=== PATIENT | female | born 1960 | race Caucasian/White ===

== ENCOUNTER 2024-09-30 05:30 | Day surgery (SDC) | payer OTHER ==
--- NOTE | 2024-09-21 10:48 | NUR ---
PHONE CALL TO PT NO ANSWER LEFT MESSAGE.
[~2024-09-30] VITALS: Ht 160 cm; Wt 95.9 kg
[~2024-09-30 05:30] MED LIST: CO Q-1010 MG PO; DEPAKOTE500 MG PO; LACTATED RINGER'S 1,000 ML IV SCH; LISINOPRIL-HCT1 EAC2 PO; NAPROXEN250 MG PO; TEGRETOL200 MG PO
[2024-09-30 05:58] VITALS: BP 165/77
[2024-09-30] MEDS ORDERED: VITAMIN D350 MCG PO (06:02)
[2024-09-30] MEDS ORDERED: TYLENOL EXTRA500 MG PO (06:03)
[2024-09-30] MEDS ORDERED: KETOROLAC TROMETHAMINE 30 MG/ML VIAL ONE ×2 (06:16→06:34)
[2024-09-30] MEDS ORDERED: propofoL 200 MG/20 ML VIAL ONE (06:34)
[2024-09-30] MEDS ORDERED: MIDAZOLAM HCL 2 MG/2 ML VIAL ONE (06:34)
[2024-09-30] MEDS ORDERED: DEXAMETHASONE SOD PHOS 4 MG/ML VIAL ONE (06:34)
[2024-09-30] MEDS ORDERED: LIDOCAINE HCL 2% 5 ML SDV ONE (06:34)
[2024-09-30] MEDS ORDERED: fentaNYL citrate 100 MCG/2 ML VIAL ONE (06:34)
[2024-09-30] MEDS ORDERED: ACETAMINOPHEN 1,000 MG/100 ML VIAL ONE (06:34)
[2024-09-30] MEDS ORDERED: ondansetron HCL 4 MG/2 ML VIAL ONE (06:34)
[2024-09-30] MEDS ORDERED: LIDOCAINE HCL 1% 5 ML SDV INJ ONE (07:00)
[2024-09-30] MEDS ORDERED: TRANEXAMIC ACID IN NACL,ISO-OS 1,000 MG/100 ML PIGGYBACK IV SCH (07:00)
[2024-09-30] MEDS ORDERED: HYDROCODONE/ACETA 5/325 TAB PO PRN (07:00)
[2024-09-30] MEDS ORDERED: CEFAZOLIN SODIUM 2 GM/20 ML SYR IV SCH (07:00)
[2024-09-30] MEDS ORDERED: IBLOOD GLUCOSE TEST STRIP 1 EA TEST VI PRN ×2 (07:00→07:30)
[2024-09-30] MEDS ORDERED: NALOXONE HCL 0.4 MG SYR IV PRN (07:30)
[2024-09-30] MEDS ORDERED: ondansetron HCL 4 MG/2 ML VIAL IV PRN (07:30)
[2024-09-30] MEDS ORDERED: droPERidol 5 MG/2 ML VIAL IV PRN (07:30)
[2024-09-30] MEDS ORDERED: PROCHLORPERAZINE EDISYLATE 10 MG/2 ML VIAL IV PRN (07:30)
[2024-09-30] MEDS ORDERED: fentaNYL citrate 50 MCG/ML SDV IV PRN (07:30)
[2024-09-30] MEDS ORDERED: HYDROmorphone HCL 1 MG/ML SYR IV PRN (07:30)
[2024-09-30] MEDS ORDERED: DICLOFENAC SODI75 MG PO (07:40)
--- NOTE | 2024-09-30 07:40 | NUR ---
PT NOT AVAILABLE FOR VISIT. PROVIDED PRAYER.
[2024-09-30] MEDS ORDERED: HYDROCODON-ACE1 EA10 PO (07:41)
[2024-09-30 08:09] VITALS: BP 136/57
--- NOTE | 2024-09-30 08:10 | NUR ---
Patient returns from PACU to room 7. She is awake and talking. Report taken from AMY Powell. Patient denies any pain or nausea. Vital signs obtained and wdl. Pedal pulse to left foot strong. Water and apple sauce provided to patient. I explained the expecations for the next hour and she expressed understanding. When patient positioned more upright in bed, patient reports some dizziness. She denies any other needs at this time. Call light within reach, bed in lowest position. Patient's friend Pablo at bedside.
--- NOTE | 2024-09-30 08:24 | NUR ---
09/30/24 0824 Sherry Felton 0740- PT ARRIVES TO THE PACU WITH A NATURAL AIRWAY ON 6L OF O2 VIA MASK. PT IS COUGHING. SEROLOGY TECHNICIAN AT BEDSIDE AND DOES A JAW THRUST AND DEEP SUCTION. BREATHING IS EVEN AND UNLABORED AFTER BEING ADJUSTED. ALL MONITORS PUT IN PLACE. VSS. LR INFUSING IN R AC. SURGICAL DRESSING IS CDI. CMS WNL OF L FOOT. ABDOMEN IS SOFT AND NON DISTENDED. PT IS REACTIVE TO TACTILE STIMULI WITH SOME FACIAL GRIMACING THAT LESSENS SHE FELL BACK TO SLEEP. SEROLOGY TECHNICIAN, REPORTS LIP TRAUMA THAT HAPPEN IN THE OR ON THE LEFT OF MIDLINE UPPER LIP. 0745- PT LIFTS HEAD OFF OF PILLOW AND LOOKING AROUND PACU. PT IS ORIENTED TO PACU. PT DENIES PAIN AND NAUSEA. O2 TURNED OFF AND REMOVED. PT IS ABLE TO MAINTAIN SAYS ABOVE 90%. PT FALLS BACK TO SLEEP EASILY BUT IS REACTIVE TO VERBAL STIMULI. 0755- PT WAKES EASILY AND IS TALKING WITH RN. PT IS TOLD ABOUT LIP TRAUMA AT THIS TIME. PT REPORTS NO PAIN OR NAUSEA. 0805- PT TRANSFERED TO DAY SURGERY. BEDISDE REPORT GIVEN TO ALONA REYES. SURGICAL SITE ASSESSED TOGETHER THAT SHOWS NO NEW SHADOWING. NO QUESTIONS OR CONCERNS. BED IN THE LOCKED POSITION. PT REPORTS NO PAIN OR NAUSEA AND REPORTS "FEELING PRETTY GOOD". [facility] WNL. CARE TURNED OVER AT THIS TIME.
[2024-09-30] MEDS ORDERED: DICLOFENAC SOD 75 MG TABEC PO SCH (09:00)
--- NOTE | 2024-09-30 09:00 | NUR ---
Rounding on patient. She would like to get up and attempt to use the restroom. She states that she feels well. No dizziness and no significant pain in her knee. Patient ambulates to the restroom without difficulty. She voids 125mL. Patient ambulates back to room 7 without difficulty and she is allowed to get dressed.
[2024-09-30 09:08] VITALS: BP 200/74
--- NOTE | 2024-09-30 09:15 | NUR ---
Patient is dressed. IV removed from right arm. Patient requests diclofenac before she is discharged as she won't be able to obtain her medications immediately. She was medicated with one dose of Diclofenac. Vital signs obtained. Blood pressure is high. Discharge instructions reviewed with patient in detail and she expresses understanding.
--- NOTE | 2024-09-30 09:19 | NUR ---
Blood pressure rechecked. Blood pressure is still high but has come down from initial check. Patient has not taken her blood pressure medication today, so she will take it when she gets home. Patient is discharged from unit via wheelchair where her friend Pablo is to take her home.
[2024-09-30 09:26] VITALS: BP 183/99
--- NOTE | 2024-09-30 11:17 | OR ---
[facility] [address], [place] [address] Signed DATE OF OPERATION: 09/30/2024 SURGEON: Suzan West MD PREOPERATIVE DIAGNOSIS: Medial meniscus tear, left knee. POSTOPERATIVE DIAGNOSES: 1. Medial meniscus tear, left knee. 2. Chondrocalcinosis. PROCEDURE PERFORMED: Left knee arthroscopy, partial medial meniscectomy. NAIL MAKER: None. ANESTHESIA: General. BLOOD LOSS: Minimal. BRIEF HISTORY: Peggy is a 64-year-old female with pain and catching in her knee. It felt unstable when she walked on it. Risks and benefits of operative treatment were discussed with her and she elected to proceed. Once consent was obtained she was taken to the operating room. After adequate anesthesia, she was placed on the operating room table. The right leg was flexed, abducted and externally rotated on a well-padded leg byrne. The left was placed in a well-padded leg byrne and prepped and draped in a standard sterile fashion. Standard inferolateral and superolateral portals were established after injecting 0.25% Marcaine with epinephrine. The scope was introduced in the knee. ARTHROSCOPIC FINDINGS: The patella showed grade 2 to grade 3 chondromalacia, primary the superior pole. The trochlea showed grade 2 to grade 3 chondromalacia. Medial and lateral gutters were clear with large osteophytes laterally. The ACL and PCL were intact. Lateral compartment showed some minor fraying of the meniscus with grade 2 chondral softening. Medial compartment showed diffuse grade 3 chondromalacia to the femur, grade 2 to the tibial side. There was a large meniscus tear from the posteromedial corner extending Electronically Signed By: SUZAN WEST MD 09/30/24 1117 PATIENT NAME: PEGGY LOPEZ OPERATIVE REPORT DATE OF : 60 REPORT #: [id number] PHYSICIAN: SUZAN WEST MD PCP: SANJANA SAINI PA-C REPORT IS CONFIDENTIAL AND NOT TO BE RELEASED WITHOUT AUTHORIZATION [facility] [address] [place] [id number] Signed posteriorly. This was infiltrated with significant amount of chondrocalcinosis. DESCRIPTION OF OPERATION: Diagnostic arthroscopy was undertaken as noted above. A standard inferomedial portal was made after localization using a spinal needle. Straight and curved biters were used to trim the meniscus tear back to a stable rim anteriorly and posteriorly. This was then feathered and smoothed using the shaver. The chondral flaps on the femur were also smoothed with a shaver. All debris was evacuated and the scope was withdrawn. Portals were closed with 3-0 nylon. The knee was injected with 60 mg of Toradol at the end of the case. The wounds were dressed with Adaptic, ABD, and Ramos wrap. She tolerated the procedure well. All sponge, needle, and instrument counts were correct. Suzan West MD BA/FRANCINE /[id number] Copies: ~ Electronically Signed By: SUZAN WEST MD 09/30/24 1117 PATIENT NAME: JOHNPEGGY OPERATIVE REPORT DATE OF : 60 REPORT #: [id number] PHYSICIAN: SUZAN WEST MD PCP: SANJANA SAINI PA-C REPORT IS CONFIDENTIAL AND NOT TO BE RELEASED WITHOUT AUTHORIZATION
[2024-09-30] MEDS ORDERED: SEVOFLURANE 250 ML BTL INH ONE (13:35)
== END 2024-09-30 09:20 | disposition home or self-care (01) ==
LOC: DS 05:30
PROVIDERS: ATTEND Specialist
PROC: 0SBD4ZZ Excision of Left Knee Joint, Percutaneous Endoscopic Approach (ICD-10-PCS; principal; 2024-09-30 07:00)
DX: S83.242A Other tear of medial meniscus, current injury, left knee, initial encounter (principal); M11.262 Other chondrocalcinosis, left knee; M94.262 Chondromalacia, left knee; I10 Essential (primary) hypertension; G40.909 Epilepsy, unspecified, not intractable, without status epilepticus; Z87.891 Personal history of nicotine dependence; Z79.899 Other long term (current) drug therapy; Z88.5 Allergy status to narcotic agent
CPT/HCPCS: 01400; J0131; J0690; J1100; J1885; J2003; J2250; J2405; J2704; J3010; J7121

== ENCOUNTER 2025-07-17 06:40 | Day surgery (SDC) | payer MEDICARE, OTHER ==
[2025-07-17] VITALS (9 sets, daily range): BP systolic 117–146; BP diastolic 57–80
[~2025-07-17] VITALS: Ht 160 cm; Wt 80.0 kg
[~2025-07-17 06:40] MED LIST changes: +DICLOFENAC SODI75 MG PO; +HYDROCODON-ACE1 EA10 PO; +TYLENOL EXTRA500 MG PO; +VITAMIN D350 MCG PO
[2025-07-17] MEDS ORDERED: GABAPENTIN 600 MG TAB PO SCH (07:00)
[2025-07-17] MEDS ORDERED: PANTOPRAZOLE SODIUM 40 MG TABEC PO SCH (07:00)
[2025-07-17] MEDS ORDERED: INTRA-ARTICULAR ANALGESIC INJECTION XX SCH (07:00)
[2025-07-17] MEDS ORDERED: OXYCODONE HCL 5 MG TAB PO SCH (07:00)
[2025-07-17] MEDS ORDERED: IBLOOD GLUCOSE TEST STRIP 1 EA TEST VI PRN ×2 (07:00→10:45)
[2025-07-17] MEDS ORDERED: CEFAZOLIN SODIUM 2 GM in SODIUM CHLORIDE 0.9% 100 ML IV SCH ×2 (07:00→17:00)
[2025-07-17] MEDS ORDERED: TRANEXAMIC ACID IN NACL,ISO-OS 1,000 MG/100 ML PIGGYBACK IV SCH ×2 (07:00→12:30)
[2025-07-17] MEDS ORDERED: LIDOCAINE HCL 1% 5 ML SDV INJ ONE (07:00)
[2025-07-17] MEDS ORDERED: ROSUVASTATIN CA10 MG PO (07:14)
[2025-07-17] MEDS ORDERED: BUPIVACAINE 0.75% IN DEXTROSE 2 ML AMP ONE (09:08)
[2025-07-17] MEDS ORDERED: LIDOCAINE HCL 2% 5 ML SDV ONE (09:08)
[2025-07-17] MEDS ORDERED: MIDAZOLAM HCL 2 MG/2 ML VIAL ONE (10:06)
[2025-07-17] MEDS ORDERED: fentaNYL citrate 100 MCG/2 ML VIAL ONE (10:06)
[2025-07-17] MEDS ORDERED: NALOXONE HCL 0.4 MG SYR IV PRN (10:45)
[2025-07-17] MEDS ORDERED: HYDROmorphone HCL 1 MG/ML SYR IV PRN (10:45)
[2025-07-17] MEDS ORDERED: fentaNYL citrate 50 MCG/ML SDV IV PRN (10:45)
[2025-07-17] MEDS ORDERED: KETOROLAC TROMETHAMINE 30 MG/ML VIAL ONE (11:33)
[2025-07-17] MEDS ORDERED: PHENYLEPHRINE HCL IN 0.9% NACL 1 MG/10 ML SYR ONE (11:33)
[2025-07-17] MEDS ORDERED: ACETAMINOPHEN 1,000 MG/100 ML VIAL ONE (11:33)
--- NOTE | 2025-07-17 12:10 | NUR ---
07/17/25 1210 Ruthy Levine LE 1155: PT ARRIVES TO PACU NON REACTIVE/NON AROUSAL. REPROT RECEIEVED FROM BRASS PLATER AND AUTOMOBILE PAINTER. LE 1159: PT AROUSES AND STARTS GRABBING AT HER MASK. ORAL AIRWAY IS REMOVED. LE 1200: PT IS GRABBING AND RIPPING OFF MONITORING CORDS. SHE WILL NOT LEAVE HER OXYGEN MASK IN PLACE. OXYGEN IS REMOVED AND TURNED OFF. SHE ATTEMPTS TO SIT UP AND TAKE OFF HER GOWN.
[2025-07-17] MEDS ORDERED: KETOROLAC TROMETHAMINE 15 MG/ML VIAL IV PRN (12:15)
[2025-07-17] MEDS ORDERED: OXYCODONE HCL 5 MG TAB PO PRN (12:15)
--- NOTE | 2025-07-17 12:45 | NUR ---
PT ARRIVES ALERT AND INTERACTIVE NUMB FROM THE WAIST DOWN. PT TRANSFERRED TO BED FRESH H20 PROVIDED AND ORIENTED TO THE ROOM. NOON MEAL ORDERED. REPORT RECEIVED FROM AMY SPENCER
--- NOTE | 2025-07-17 13:51 | NUR ---
PT VISITING WITH A FRIEND EATS A SANDWICH SOON AFTER ARRIVING. PT HAS BEEN UPBEAT AND CHEERFUL, NOW C/O SOME SLIGHT NAUSEA. DR PUCKETT NOTIFIED ORDERS FOR LIBERTAD RECEIVED.
[2025-07-17] MEDS ORDERED: ONDANSETRON 4 MG TAB ODT SL PRN (14:00)
--- NOTE | 2025-07-17 14:24 | NUR ---
PT REPORTS STILL BEING NAUSEOUS AFTER EATING A SANDWICH. HAS VISITORS IN ROOM. ZOFRAN ADMINISTERED. CLOSED DOOR PT IS CHILLED.
--- NOTE | 2025-07-17 14:36 | NUR ---
PT CONTINUES RESTING IN BED VISITING WITH FAMILY X2. NO EMESIS BUT STATES SHE IS STILL A LITTLE NAUSEATED.
--- NOTE | 2025-07-17 15:52 | NUR ---
PT HAS HER NORMAL SCEDULED MEDS IN HER BAG AND STATES SHE INTENDS TO TAKE THEM TONIGHT. DISCUSSED WITH PT THAT THESE NEED TO GO THROUGH PHARMACY TO ENSURE NO INTERACTION WITH MEDS SHE HAS RECEIVED HERE. PT STATES MEDS ARE NOT IN ORIGINAL BOTTLES. SPOKE TO DR PUCKETT HE AGREES PT CAN TAKE DEPAKOTE AND TEGRATOL SHE NORMALLY DOES. PHARMACY WILL NOT OKAY THE MEDS WITHOUT ORIGINAL BOTTLES. MEDS ORDERED TO BE GIVEN FROM HOUSE SUPPLY
[2025-07-17] MEDS ORDERED: CARBAMAZEPINE400 MG PO (17:19)
--- NOTE | 2025-07-17 17:19 | NUR ---
PT WORKED WITH P/T EARLIER WELL TOLERATED. CONTINUES UP IN THE CHAIR STATES SHE IS A LITTLE SORE, AGREES SHE WOULD LIKE PAIN MED. OXY PROVIDED WITH EVENING MEAL. PT HAS CALL LIGHT IN HER LAP DENIES OTHER NEEDS OF.
[2025-07-17] MEDS ORDERED: VALPROIC ACID250 MG PO (17:20)
--- NOTE | 2025-07-17 17:59 | NUR ---
PT HAD BITES ONLY OF EVENING MEAL STATES SHE ATE UNTIL SHE WAS FULL AND THAT WAS ALL SHE NEEDED. CONTINUES UP IN THE CHAIR AT THIS TIME WATCHING TV
--- NOTE | 2025-07-17 18:26 | NUR ---
MED REC COMPLETE
--- NOTE | 2025-07-17 19:24 | NUR ---
REPORT RECEIVED FROM DAY SHIFT RN. PT LYING IN BED ALERT AND ORIENTED. DENIES NEEDS. WHITE BOARD UPDATED. CALL LIGHT IN REACH.
[2025-07-17] MEDS ORDERED: VALPROIC ACID 250 MG CAP PO SCH (21:00)
[2025-07-17] MEDS ORDERED: ASPIRIN 325 MG TAB PO SCH (21:00)
[2025-07-17] MEDS ORDERED: SENNOSIDES 1 TAB PO SCH (21:00)
[2025-07-17] MEDS ORDERED: DIVALPROEX SODIUM 500 MG TABLET.DR PO SCH (21:00)
[2025-07-17] MEDS ORDERED: carBAMazepine 200 MG TAB PO SCH ×2 (21:00)
--- NOTE | 2025-07-17 21:07 | NUR ---
EVENING ASSESSMENT COMPLETE. SCHEDULED MEDS ADMIN PER EMAR. PT REPORTS LEFT THIGH PAIN 12/22. PRN FOR PAIN ADMIN PER EMAR. PT UP TO BR WITH 1PA AND FWW TO VOID 100 ML CONCENTRATED URINE. PT ABLE TO DO OWN MELANIE CARE. BACK TO BED, EYAD WELL. GAIT STEADY. SCD'S/TEDS/HP IN PLACE. FRESH ICE TO CRYO. PT REPORTS RESIDUAL NUMBESS IN LEFT THIGH. STRONG PULSES FELT BILAT. BRISK CAP REFILL NOTED. LEFT HIP DRESSING X 2 INTACT WITH SCANT AMOUNT DRY DRAINAGE. PO INTAKE ENCOURAGED. PT DENIES QUESTIONS OR CONCERNS. BED ALARM FOR SAFETY. CALL LIGHT IN REACH.
[2025-07-18] VITALS (9 sets, daily range): BP systolic 98–137; BP diastolic 55–73
--- NOTE | 2025-07-18 | NUR ---
PT RESTING IN BED WITH EYES CLOSED. RESPIRATIONS EVEN. CALL LIGHT IN REACH.
--- NOTE | 2025-07-18 01:37 | NUR ---
PT AWAKE IN BED. UP TO BR WITH FWW AND SBA TO VOID AN UNMEASURED AMOUNT. URINE CONCENTRATED. BACK TO BED, EYAD WELL. PO INTAKE ENCOURAGED. PT REPORTS LEFT HIP PAIN. PRN FOR PAIN ADMIN PER EMAR. REPORTS NUMBNESS IN LEFT THIGH RESOLVED. CMS INTACT. LEFT HIP DRESSING UNCHANGED. SCD'S/TEDS/HP IN PLACE. FRESH ICE TO CRYO. IV ABX INFUSING PER ORDER. NO FURTHER NEEDS. CALL LIGHT IN REACH.
--- NOTE | 2025-07-18 03:49 | NUR ---
PT RESTING IN BED WITH EYES CLOSED. SpO2 92% ON RA. HR 60'S. RESPIRATIONS EVEN. CALL LIGHT IN REACH.
--- NOTE | 2025-07-18 05:06 | NUR ---
CALL LIGHT ANSWERED. PT UP TO BR WITH SBA AND FWW TO VOID 100 ML CONCENTRATED URINE. GAIT STEADY. PT ABLE TO DO OWN MELANIE CARE. AT SINK TO WASH HANDS. BACK TO BED, EYAD WELL. PT REPORTS FEELINGS OF URINARY RETENTION. BLADDER SCANNED FOR 190 MLS. ENCOURAGED PO INTAKE. SCD'S IN PLACE. FRESH ICE TO CRYO. CPOX IN PLACE. SpO2 99% ON RA. PT DENIES FURTHER NEEDS. CALL LIGHT IN REACH.
--- NOTE | 2025-07-18 07:02 | OR ---
[facility] [address], [place] [address] Signed DATE OF OPERATION: 07/17/2025 SURGEON: Suzan West MD PREOPERATIVE DIAGNOSIS: Degenerative joint disease, left hip. POSTOPERATIVE DIAGNOSIS: Degenerative joint disease, left hip. PROCEDURE PERFORMED: Left total hip arthroplasty. WARP CHANGER: Divine Basilio PA-C. Divine was present and critical for all portions of procedure. ANESTHESIA: Spinal. BLOOD LOSS: 167 mL. IMPLANTS: Kendal size 3 Insignia stem, 50 mm cup, two 6.5 mm screws, and a +2.5 head. BRIEF HISTORY: Peggy is a 65-year-old female with progressive worsening of osteoarthritis in the left hip. Nonoperative treatment was unsuccessful and she wished to proceed with operative. Risks, benefits, and alternatives of surgery were discussed and she elected to proceed. DESCRIPTION OF PROCEDURE: Once consent was obtained, she was taken to the operating room. After adequate anesthesia, she was placed in right lateral decubitus position. All downside pressure points were well padded. An axillary roll was placed. The left hip was prepped and draped in a standard sterile fashion. The two incisions for the Jaswinder computer array were made in the iliac crest three fingerbreadths posterior to the ASIS. The Schanz pins were placed and the Jaswinder array was tightened. Attention was then turned to the hip, which was approached through standard anterolateral approach. This was carried through skin and subcutaneous tissue. IT band was divided longitudinally. The vastus Electronically Signed By: SUZAN WEST MD 07/18/25 0702 PATIENT NAME: PEGGY LOPEZ OPERATIVE REPORT DATE OF : 60 REPORT #: [id number] PHYSICIAN: SUZAN WEST MD PCP: SANJANA SAINI PA-C REPORT IS CONFIDENTIAL AND NOT TO BE RELEASED WITHOUT AUTHORIZATION [facility] [address], [place] [address] Signed lateralis was then split from the tip of the trochanter along the anterior margin of the femur and elevated subperiosteally around the level of the lesser trochanter. The gluteus medius and capsule were then split from the tip of the trochanter all the way to the acetabular rim. The fluid was removed from the hip. The leg was then registered with the computer and the hip was dislocated. The femoral neck cut was then made one fingerbreadth above the lesser trochanter. The femoral head was passed off the table. The periacetabular soft tissue was removed and the acetabulum was registered with the computer. The robot was brought in and the acetabulum was reamed per the plan. We then impacted the cup into position. The bone was quite hard, so I went ahead and put two screws posterior superiorly. The liner was then impacted. Attention was turned to the proximal femur, which was opened using GainSpan cutter, followed by the Kelvin awl. It was then sequentially broached up to a 3. The 3 was left in position and initially a standard offset 0 head was used, but that was too loose. We increased it to a high offset and 2.5 head and this felt good. Leg lengths were equal. She had good range of motion with excellent stability. The hip was then dislocated and the trials were removed. The final stem was impacted until it seated flush on the cut. The +2.5 head was impacted after cleaning the trunnion. The hip was reduced and taken again through range of motion and found to be good. The wound was copiously irrigated with one bottle Surgiphor followed by normal saline. Periarticular soft tissues were injected with 100 mL ropivacaine Toradol mixture. The capsule was then closed using #2 FiberWire. The vastus and IT band layers were closed independently using #2 Stratafix. The fat was then closed using 2-0 Monocryl. Subcutaneous tissue with 0 Stratafix and the skin with 3-0 Stratafix. The wound was dressed with an Acticoat-7 dressing. She was awakened, taken to the recovery room in satisfactory condition. All sponge, needle, and instrument counts were correct. Suzan West MD BA/MODL /[id number] Copies: ~ Electronically Signed By: SUZAN WEST MD 07/18/25 0702 PATIENT NAME: PEGGY LOPEZ OPERATIVE REPORT DATE OF : 60 REPORT #: [id number] PHYSICIAN: SUZAN WEST MD PCP: SANJANA SAINI PA-C REPORT IS CONFIDENTIAL AND NOT TO BE RELEASED WITHOUT AUTHORIZATION
[2025-07-18] MEDS ORDERED: CEFUROXIME250 MG PO (07:16)
[2025-07-18] MEDS ORDERED: DICLOFENAC SODI75 MG PO (07:17)
[2025-07-18] MEDS ORDERED: ASPIRIN325 MG PO (07:17)
[2025-07-18] MEDS ORDERED: SENNA LAX8.6 MG PO (07:17)
[2025-07-18] MEDS ORDERED: OXYCODONE HCL5 M1 PO (07:17)
--- NOTE | 2025-07-18 07:51 | NUR ---
PT AWAKE AND INTERACTIVE AT TIME OF SHIFT REPORT. UP TO TOILET THEN TO THE RECLINER. PT REPORTS DR PUCKETT WAS IN AROUND 0700 ALL QUESTIONS ANSWERED. PT AGREES SHE IS READY TO GO HOME TODAY. [facility] SERVED CALL LIGHT IN REACH
[2025-07-18] MEDS ORDERED: DICLOFENAC SOD 75 MG TABEC PO SCH (08:00)
--- NOTE | 2025-07-18 08:07 | NUR ---
UR CLINICAL REVIEW: 2 MN FOR VERSALUS-PER PRINCIPAL EMBEDDED SOFTWARE ENGINEER MEETS EXTENDED STAY CRITERIA FOR LEFT TOTAL HIP WITH NEED FOR PT/OT MEDICARE EXTENDED STAY 07/17/25 @ 1230 ORDER MATCHES REG NO AUTH REQUIRED PER MEDICARE GUIDELINES DISCHARGE TO HOME WHEN CLEARED BY PT/OT
--- NOTE | 2025-07-18 08:43 | NUR ---
PT CONTINUES UP IN THE CHAIR CRYO IN PLACE CALL LIGHT IN LAP. SHE EATS VERY LITTLE BREAKFAST. STATES HER LLE IS STARTING TO HURT ALL OF A SUDDEN. SCHEDULED PAIN MEDS GIVEN WITH MORNING MEAL DISCUSSED ALLOWING THEM TO TAKE EFFECT THEN PRN MED CAN BE TAKEN AT 0915. PT VERBALIZES UNDERSTANDING DENIES FURTHER NEED AT THIS TIME
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
--- NOTE | 2025-07-18 09:37 | NUR ---
PT SHOES ARE RETURNED FROM DAY SURG ALL ITEMS ACCOUNTED FOR . PT FINISHES WORKING WITH O/T RETURNS TO BED TO REST
--- NOTE | 2025-07-18 09:58 | NUR ---
PT HAD A SMALL EMESIS WHILE WORKING WITH O/T ZOFRAN WAS GIVEN AND SHE STATES NAUSEA HAS PASSED. PT RESTING IN BED NOW STATES PAIN HAS GONE FROM 6 TO A 3 AND SHE IS COMFORTABLE RESTING. FRIEND AT BEDSIDE VISITING ACTIVELY CALL LIGHT IN REACH
--- NOTE | 2025-07-18 10:06 | NUR ---
PATIENT UP TO BATHROOM AND BACK TO BED, SBA FWW. VITALS AND I&O'S DONE AND CHARTED. BED ALARM ON. CALL LIGHT IN REACH. NO FURTHER NEEDS AT THIS TIME. CRYO CHECKED AND STILL HAS ICE.
--- NOTE | 2025-07-18 10:40 | NUR ---
Spoke with Lilliam. Her friend Pablo is at the bedside. Lilliam lives alone in a modular home with 3 steps. Pt obtained all the DME Dr. West recommended. Pt plans on going home, but now is hesitant as she lives alone. Her friend can assist, but cannot stay with her 24-7. Pts son also lives in town and can assist her. Pt denies financial or safety concerns. PT working with pt to meet criteria for dc.
--- NOTE | 2025-07-18 11:44 | NUR ---
PT UP WORKING WITH P/T AT THIS TIME
--- NOTE | 2025-07-18 12:08 | NUR ---
P/T WELL TOLERTED PT RETURNS TO THE ROOM SITTING UP IN THE CHAIR WITH NOON MEAL. DENIES NEEDS OF AT THIS TIME
--- NOTE | 2025-07-18 12:37 | NUR ---
PT REPORTS SHE DID WELL WITH P/T MANAGED THE STAIRS AND ALL THE DISTANCE AMBULATION. STATES IT WORE HER OUT BUT WENT WELL. PT THEN STARTS TO CRY AND STATES SHE DOESN'T WANT TO GO TO A PENITENTIARY. ASKED PT WHY SHE WOULD THINK SHE NEEDED TO GO TO A SNF SHE STATES SHE DOESN'T HAVE ANYBODY TO STAY NIGHTS WITH HER AND P/T SAID THAT SHE WOULD HAVE TO GO TO SNF. RE-ASSURED PT THE PLAN IS TO DC HER LATER LONG SHE HAS MET P/T PARAMETERS. MET WITH P/T SHE STATES PT DID WELL WITH THERAPY BUT EXPRESSED CONCERN ABOUT GOING HOME TODAY DUE TO NAUSEA. PT HAS NO CURRENT C/O NAUSEA SHE IS EATING HER LUNCH AND PLANS TO HAVE PAIN MEDICATIONS AROUND 1330. SHE HAS NOT EATEN MUCH OF ANYTHING AT ANY MEALS SERVED SINCE COMING FROM SURGERY. 2 BITES OF A SANDWICH, 1/4 C SCRAMBLED EGGS AT MORNING MEAL. JUST THE PUDDING AT ANOTHER MEAL. NAUSEA HAS BEEN ASSOSCIATED WITH MEAL TIMES IT SEEMS. WILL ENSURE LUNCH HAS SETTLED BEFORE ADMINISTERING OXY THIS AFTERNOON
--- NOTE | 2025-07-18 12:59 | NUR ---
Reviewed PT notes. Pt able to walk 100 ft and complete stairs.
--- NOTE | 2025-07-18 13:19 | NUR ---
PT SITTING IN CHAIR. VITALS SIGNS COMPLETED. CRYOCUFF FILLED WITH FRESH ICE AND IS IN PLACE, EDUCATION PROVIDED ON USE OF CRYOCUFF. PT DENIES OTHER NEEDS AT THIS TIME. CALL LIGHT WITHIN REACH.
--- NOTE | 2025-07-18 13:28 | NUR ---
PT REPORTS EATING 70% OF HER NOON MEAL AND THAT HER STOMACH "FEELS SETTLED" NO NAUSEA CURRENTLY. OXY 5MG ADMINISTERED PER HER REQUEST. SHE CONTINUES UP IN THE CHAIR AND AGREES TO CALL FOR ANY NEEDS OF
--- NOTE | 2025-07-18 15:35 | NUR ---
PT CONTINUES UP IN THE CHAIR CRYO IN PLACE. DENIES FURTHER NAUSEA AGREES PAIN IS UNDERCONTROL. CALL LIGHT IS IN REACH FRESH H20 TO CHAIRSIDE, OTHER NEEDS DENIED
--- NOTE | 2025-07-18 17:21 | NUR ---
PT CONTINUES UP IN THE CHAIR EVENING MEAL IN FRONT OF HER SHE IS SPEAKING ON THE PHONE. DENIES NEEDS AT THIS TIME
--- NOTE | 2025-07-18 17:55 | NUR ---
PT EATS MOST OF EVENING MEAL DENIES NAUSEA OR STOMACH UPSET. CONTINUES UP IN THE CHAIR AT THIS TIME. RATES HIP PAIN 4/10 STATES "NOT TOO BAD"
--- NOTE | 2025-07-18 19:11 | NUR ---
PT TO THE TOILET THEN RETURNS TO REST IN BED. SCD'S AND CRYO. CALL LIGHT AND NEEDED ITEMS AT BEDSIDE
--- NOTE | 2025-07-18 19:13 | NUR ---
PT RESTING IN BED, VISITOR IN THE ROOM AND LIGHTS ON. PT HAS ICE MACHINE ON HER HIP AND THE CALL LIGHT LAYING ON HER BED NEXT TO HER HAND. PT HAS FRESH WATER IN HER CUP, NO ICE REQUESTED. TOOK OUT TRASH AND CLEANED UP THE ROOM. PT HAD A SANDWICH FOR DINNER BECAUSE SHE DID NOT WANT BBQ PORK. PT PERFORMED PM CARE DURING LAST AMBULATION TO THE TOILET, CLEANING HER HANDS AND FACE, REFUSING ORAL CARE. PT REPORTED NEEDING NOTHING MORE AT THIS TIME AND SAID SHE WAS HAPPY TO BE IN THE HOSPITAL FOR ONE MORE NIGHT.
--- NOTE | 2025-07-18 19:19 | NUR ---
REPORT RECEIVED FROM DAY SHIFT RN. PT LYING IN BED ALERT AND ORIENTED. DENIES NEEDS. WHITE BOARD UPDATED. CALL LIGHT IN REACH.
--- NOTE | 2025-07-18 21:29 | NUR ---
EVENING ASSESSMENT COMPLETE. SCHEDULED MEDS ADMIN PER EMAR. PT REPORT LEFT THIGH PAIN /. PRN FOR PAIN ADMIN PER EMAR. PT UP TO BR WITH FWW AND SBA TO VOID. BACK TO BED, EYAD WELL. SCD'S/TEDS/CRYO IN PLACE. CMS INTACT. LEFT HIP DRESSING INTACT WITH SCANT AMOUNT DRY DRAINAGE. PT DENIES QUESTIONS OR CONCERNS. CALL LIGHT IN REACH.
--- NOTE | 2025-07-18 23:38 | NUR ---
PT AWAKE IN BED WATCHING TV. DENIES NEEDS AT THIS TIME. CALL LIGHT IN REACH.
--- NOTE | 2025-07-19 01:18 | NUR ---
CALL LIGHT ANSWERED. SCD MACHINE ALARMING. ISSUE RESOLVED. RIGHT FOOT PUMP OFF PER PT REQUEST. DENIES FURTHER NEEDS. CALL LIGHT IN REACH.
--- NOTE | 2025-07-19 04:10 | NUR ---
CALL LIGHT ANSWERED. PT UP TO BR WITH FWW AND SBA TO VOID. BACK TO RECLINER. ASSESSMENT UNCHANGED. WARM BLANKET PROVIDED. FRESH ICE TO CRYO. NO FURTHER NEEDS. CALL LIGHT IN REACH.
[2025-07-19 06:24] VITALS: BP 110/62
--- NOTE | 2025-07-19 07:20 | NUR ---
RECEIVED REPORT FROM AMY SOLER. PT ASSISTED IN MOVING TO RM 113, WHITEBOARD UPDATED. NO OTHER NEEDS AT THIS TIME, [facility] WITHIN REACH.
--- NOTE | 2025-07-19 07:54 | NUR ---
PATIENT IN BED AT THIS TIME. MASTER COOK CHARTED HORULY ROUNDS. CALL LIGHT WIHTIN REACH, NO FURTHER NEEDS.
--- NOTE | 2025-07-19 08:50 | NUR ---
PT REPORTS SLIGHT NAUSEA WHEN EATING BREAKFAST, NO MEDS WANTED. PT REPORTS NO PAIN AT THIS TIME, FRIEND AT BEDSIDE.
--- NOTE | 2025-07-19 09:25 | NUR ---
Spoke with Lilliam. She is planning on dc today. Feels much better about going home. Friend, Pablo, is here. She will check in with Lilliam a few times per day. Pt denies any needs.
[2025-07-19 09:40] VITALS: BP 98/53
--- NOTE | 2025-07-19 09:45 | NUR ---
PT DRESSED IN OWN CLOTHES, PHARMACY AT BEDSIDE, IV REMOVED WNL, VSS. DC PACKET WENT OVER WITH PT, QUESTIONS ANSWERED. PT WHEELCHAIRED TO FRONT OF [facility] BY NURSING PERSONEL AND ALL PERSONAL BELONGINGS.
== END 2025-07-19 09:55 | disposition home or self-care (01) ==
LOC: MS 06:40 → DS 06:40 → MS 12:45 → DS 07-19 09:55
PROVIDERS: ATTEND Specialist
PROC: 0SRB0JZ Replacement of Left Hip Joint with Synthetic Substitute, Open Approach (ICD-10-PCS; principal; 2025-07-17 09:25)
DX: M16.12 Unilateral primary osteoarthritis, left hip (principal); I10 Essential (primary) hypertension; G40.909 Epilepsy, unspecified, not intractable, without status epilepticus; Z87.891 Personal history of nicotine dependence; Z79.899 Other long term (current) drug therapy; Z88.1 Allergy status to other antibiotic agents; Z88.5 Allergy status to narcotic agent; Z90.710 Acquired absence of both cervix and uterus
CPT/HCPCS: 0055T; 27130; 01214; 51798; 72170; 96365; 97116; 97161; 97166; 97530; 97535; A9270; C1713; C1776; J0131; J0165; J0688; J1885; J2003; J2250; J2405; J2704; J3010; J7121

== ENCOUNTER 2025-08-20 10:38 | Inpatient (IN) | payer MEDICARE, OTHER ==
[~2025-08-20] VITALS: Ht 160 cm; Wt 81.3 kg
--- OUTSIDE RECORDS SUMMARY | ~2025-08-20 | XMS | Continuity of Care Document ---
Demographics + + + | Address | [address] | | | [place] [address] | + + + | Preferred Language | Unknown | + + + | Marital Status | | + + + | Orthodoxy Affiliation | Unknown | + + + | Race | White | + + + | Ethnic Group | Not or | + + + Author + + + | Author | [facility] | + + + | Organization | [facility] | + + + | Address | [address] | | | [place] [address] | + + + | Phone | | + + + Care Team Providers + + + + | Care Tool Storage Attendant Name | Role | Phone | + + + + Unavailable | Unavailable | + + + + Unavailable | Unavailable | + + + + Allergies and Intolerances + + + + + + | date | description | facility | reaction | severity | + + + + + + | 2025-07-17 | Vancomycin | [facility] - | (no reaction) | Moderate | | 00:00 | | [facility] | | | + + + + + + | 2025-07-17 | Codeine | [facility] - | (no reaction) | Mild | | 00:00 | | [facility] | | | + + + + + + | 2025-07-17 | Vancomycin | [facility] - | (no reaction) | Moderate | | 00:00 | | [facility] | | | + + + + + + | 2025-07-17 | Codeine | [facility] - | (no reaction) | Mild | | 00:00 | | [facility] | | | + + + + + + | 2025-07-17 | Vancomycin | [facility] - | (no reaction) | Moderate | | 00:00 | | [facility] | | | + + + + + + | 2025-07-17 | Codeine | [facility] - | (no reaction) | Mild | | 00:00 | | [facility] | | | + + + + + + Encounters No information. Functional Status No information. Immunizations No information. Medications + + + + | date | description | facility | + + + + | 2025-07-18 00:00 | OXYCODONE HCL | [facility] | | | | [facility] | + + + + | (no date) | VALPROIC ACID | [facility] | | | | [facility] | + + + + | (no date) | | [facility] | | | LISINOPRIL/HYDROCHLOROTHIAZ | [facility] | | | THERESE | | + + + + | (no date) | NAPROXEN | [facility] | | | | [facility] | + + + + | (no date) | ACETAMINOPHEN | [facility] | | | | [facility] | + + + + | (no date) | UBIDECARENONE | [facility] | | | | [facility] | + + + + | 2025-07-18 00:00 | ASPIRIN | [facility] | | | | [facility] | + + + + | 2025-07-18 00:00 | CEFUROXIME AXETIL | [facility] | | | | [facility] | + + + + | 2025-07-18 00:00 | SENNOSIDES | [facility] | | | | [facility] | + + + + | (no date) | CARBAMAZEPINE | [facility] | | | | [facility] | + + + + | (no date) | Cholecalciferol (Vitamin | [facility] | | | D3) | [facility] | + + + + | 2025-07-18 00:00 | DICLOFENAC SODIUM | [facility] | | | | [facility] | + + + + | (no date) | Rosuvastatin Calcium | [facility] | | | | [facility] | + + + + Problems No information. Procedures + + + + | date | description | facility | + + + + | 2025-07-17 00:00 | BONE SRGRY CMPTR CT/MRI | [facility] | | | IMAG | [facility] | + + + + | 2025-07-17 00:00 | REPLACEMENT OF LEFT HIP | [facility] | | | JOINT WITH SYNTH SUB, OPEN | [facility] | | | APPROACH | | + + + + | 2025-07-17 00:00 | Total replacement of right | [facility] | | | hip joint | [facility] | + + + + | 2025-07-17 00:00 | Total replacement of right | [facility] | | | hip joint | [facility] | + + + + Results/Labs No information. Social History +--------+ + + | date | description | facility | +--------+ + + Vital Signs + + + +---------+ | date | measurement | value | units | + + + +---------+ | 2025-07-05 00:00 | BMI | 31.2 | kg/m2 | + + + +---------+ | 2025-07-05 00:00 | height_metric | 160.02 | cm | + + + +---------+ | 2025-07-05 00:00 | height_standard | 63 | in | + + + +---------+ | 2025-07-05 00:00 | weight_metric | 80 | kg | + + + +---------+ | 2025-07-05 00:00 | weight_standard | 176.368 | lb | + + + +---------+ | 2025-07-19 00:00 | BP_diastolic | 53 | mmHg | + + + +---------+ | 2025-07-19 00:00 | BP_systolic | 98 | mmHg | + + + +---------+ | 2025-07-19 00:00 | heart_rate | 89 | /min | + + + +---------+ | 2025-07-19 00:00 | o2_saturation | 100 | % | + + + +---------+ | 2025-07-19 00:00 | respiration_rate | 14 | /min | + + + +---------+ | 2025-07-19 00:00 | | 97.9 | F | | | temperature_standar | | | | | d | | | + + + +---------+"
--- OUTSIDE RECORDS SUMMARY | ~2025-08-20 | XMS | Continuity of Care Document ---
Demographics + + + | Address | [address] | | | [place] [address] | + + + | Preferred Language | Unknown | + + + | Marital Status | | + + + | Congregational Affiliation | Unknown | + + + | Race | White | + + + | Ethnic Group | Not or | + + + Author + + + | Author | [facility] | + + + | Organization | [facility] | + + + | Address | [address] | | | [place] [address] | + + + | Phone | | + + + Care Team Providers + + + + | Care Lawn Sprinkler Installer Name | Role | Phone | + [...] | 2025-07-18 00:00 | OXYCODONE HCL | [facility] | | | | [facility] | + + + + | (no date) | VALPROIC ACID | [facility] | | | | [facility] | + + + + | (no date) | | [facility] | | | LISINOPRIL/HYDROCHLOROTHIAZ | [facility] | | | THERESE | | + + + + | (no date) | NAPROXEN | [facility] | | | | [facility] | + + + + | (no date) | ACETAMINOPHEN | [facility] | | | | [facility] | + + + + | (no date) | UBIDECARENONE | [facility] | | | | [facility] | + + + + | 2025-07-18 00:00 | ASPIRIN | [facility] | | | | [facility] | + + + + | 2025-07-18 00:00 | CEFUROXIME AXETIL | [facility] | | | | [facility] | + + + + | 2025-07-18 00:00 | SENNOSIDES | [facility] | | | | [facility] | + + + + | (no date) | CARBAMAZEPINE | [facility] | | | | [facility] | + + + + | (no date) | Cholecalciferol (Vitamin | [facility] | | | D3) | [facility] | + + + + | 2025-07-18 00:00 | DICLOFENAC SODIUM | [facility] | | | | [facility] | + + + + | (no date) | Rosuvastatin Calcium | [facility] | | | | [facility] | + + + + Problems No information. Procedures + + + + | date | description | facility | + + + + | 2025-07-17 00:00 | BONE SRGRY CMPTR CT/MRI | [facility] | | | IMAG | [facility] | + + + + | 2025-07-17 00:00 | REPLACEMENT OF LEFT HIP | [facility] | | | JOINT WITH SYNTH SUB, OPEN | [facility] | | | APPROACH | | + + + + | 2025-07-17 00:00 | Total replacement of right | [facility] | | | hip joint | [facility] | + + + + | 2025-07-17 00:00 | Total replacement of right | [facility] | | | hip joint | [facility] | + + + + [...]
[~2025-08-20 10:38] MED LIST changes: +ASPIRIN325 MG PO; +CARBAMAZEPINE400 MG PO; +CEFUROXIME250 MG PO; -LACTATED RINGER'S 1,000 ML IV SCH; +OXYCODONE HCL5 M1 PO; +ROSUVASTATIN CA10 MG PO; +SENNA LAX8.6 MG PO; +VALPROIC ACID250 MG PO
[2025-08-20] MEDS ORDERED: SODIUM CHLORIDE 0.9% 2,000 ML IV PRN (11:00)
[2025-08-20 11:07] LABS: BASOPHILS 0.3 % (0.1-1.2); EOSINOPHILS 0 % (0.7-5.8); LYMPHOCYTES 8.5 % (19.3-51.7); MCH 32.2 PG (25.6-32.2); MCHC 33.2 g/dL (32.2-35.5); MCV 96.9 fL (79.4-94.8); MONOCYTES 18.9 % (4.7-12.5); NEUTROPHILS 71.6 % (34.0-71.1); RBC 3.57 M/uL (3.93-5.22)
[2025-08-20 11:28] LABS: INR 1.2 (0.80-1.30); PROTIME 14.4 Sec (11.2-14.2)
[2025-08-20 11:31] LABS: ALT (SGPT) 18.0 U/L (14-59); AST (SGOT) 19.0 U/L (15-37); GLOMERULAR FILTRATION RATE,EST 56.0 mL/min (>60); PROTEIN, TOTAL 5.9 g/dL (6.4-8.2); UREA NITROGEN 37.0 mg/dL (7-18)
[2025-08-20 11:39] LABS: LACTIC ACID, BLOOD 3.2 mmol/L (0.4-2.0)
[2025-08-20] MEDS ORDERED: PEPCID AC20 MG PO (11:48)
[2025-08-20] MEDS ORDERED: STOOL SOFT50 MG/5 ML PO (11:50)
[2025-08-20 12:41] LABS: BLOOD/HGB, URINE SMALL (Negative); KETONE, URINE TRACE (Negative); LEUK ESTERASE, URINE TRACE (negative); NITRITE, URINE NEGATIVE (negative)
[2025-08-20 12:46] LABS: EPITHELIAL CELLS, URINE SQUAMOUS 3+ /lpf (0-1+)
[2025-08-20 12:47] LABS: BACTERIA, URINE 2+ /hpf (negative); CASTS, URINE NONE SEEN \\lpf; CRYSTALS, URINE NONE SEEN (0-1+); REFLEX CULTURE, URINE No (No)
[2025-08-20] MEDS ORDERED: ACETAMINOPHEN 500 MG TAB PO ONE (13:00)
[2025-08-20 13:49] LABS: LACTIC ACID, BLOOD 1.4 mmol/L (0.4-2.0)
[2025-08-20 14:19] LABS: INFLUENZA B NAA NEGATIVE (NEGATIVE); RESPIRATORY SYNCYTIAL VIR NAA NEGATIVE (NEGATIVE)
[2025-08-20] MEDS ORDERED: CIPROFLOXACIN/DEXTROSE 400 MG/200 ML PIGGYBACK IV ONE (15:15)
[2025-08-20] MEDS ORDERED: SODIUM CHLORIDE 0.9% 1,000 ML IV PRN (15:15)
[2025-08-20] MEDS ORDERED: ACETAMINOPHEN 325 MG TAB PO PRN (16:15)
[2025-08-20] MEDS ORDERED: SODIUM CHLORIDE 0.9% 1,000 ML IV SCH (16:15)
[2025-08-20] MEDS ORDERED: POTASSIUM CHLORIDE 40 MEQ,LIDOCAINE HCL 1% 40 MG in DEXTROSE 5% 250 ML IV ONE (16:45)
[2025-08-20 17:17] VITALS: BP 122/55
[2025-08-20 17:30] VITALS: BP 130/59
[2025-08-20 18:00] VITALS: BP 120/51
[2025-08-20] MEDS ORDERED: MAGNESIUM SULFATE 2 GM/50 ML BAG IV SCH (18:30)
--- NOTE | 2025-08-20 19:02 | NUR ---
pt iv mg, and kcl fusing wnl. pt watching tv - denies needs, scds set up pt will wear after walking to br to void. pt declines taking off her robe from home (smells like stool) - pt aware that we need a stool sample next trip to br. container at bedside. call light in reach.
--- NOTE | 2025-08-20 19:30 | NUR ---
ROUNDING ON PATIENT AFTER REPORT FROM DOMINIQUE Dave RN, PATIENT REPORTS SHE IS HAVING NAUSEA AND ABDOMEN PAIN, SHE DENIES NEED FOR PAIN MEDICATION AT THIS TIME, ZOFRAN PRN ADMINISTERED. PATIENT REPORTS SHE HAS DIFFICULTY SWALLOWING AFTER HIP SURGERY THEN THAT RESOLVED, NOW IT IS BACK AFTER VOMITING LAST NIGHT. SHE IS ABLE TO SWALLOW TYLENOL AND DRINK WATER. ASSESSMENT COMPLETE, ROUNDED IN ROOM WELL. UPDATED ON ASSESSMENT, PAIN AND NAUSEA. TO NOTE BOWEL TONE IS RARE IN ALL FOUR QUADRANTS.
[2025-08-20 20:02] VITALS: BP 128/48
[2025-08-20] MEDS ORDERED: CIPROFLOXACIN/DEXTROSE 400 MG/200 ML PIGGYBACK IV SCH (21:00)
[2025-08-20 21:28] VITALS: BP 131/83
--- NOTE | 2025-08-20 22:10 | NUR ---
PATIENT UP TO BEDSIDE COMMODE WITH ONE PERSON ASSIST WITH FWW. SHE VOIDED 250ML TEA COLORED URINE, TOLERATED ACTIVITY FAIR, WITH HEART RATE UP TO 120/MIN WHILE UP, DOWN TO 106/MIN ONCE BACK TO BED.
[2025-08-20 23:09] VITALS: BP 108/60
[2025-08-21] VITALS (7 sets, daily range): BP systolic 99–129; BP diastolic 50–73
--- NOTE | 2025-08-21 01:00 | NUR ---
PATIENT BACK TO BED AFTER UP TO BEDSIDE COMMODE, GOOD STRENGTH AND MOBILITY, ONE PERSON ASSIST FOR LINE MANAGEMENT. PATIENT NOTED TO HAVE A SMEAR STOOL ON BED, PATIENT VOIDED 250M TEA COLORED URINE. BED AND PATIENT CLEANED. SHE REPORT NO NAUSEA BUT HAS INCREASED ABD PAIN. WILL CALL TO UPDATE AND POSSIBLE HAVE NEW ORDER FOR PAIN MANAGEMENT.
--- NOTE | 2025-08-21 01:10 | NUR ---
PATIENT HAVING PAIN 5/10 ABD, TYLENOL WAS NOT HELPFUL, NEW ORDER FOR OXYCODONE PRN, SEE EMAR.
[2025-08-21] MEDS ORDERED: OXYCODONE HCL 5 MG TAB PO PRN (01:15)
[2025-08-21 05:42] LABS: MCH 32.7 PG (25.6-32.2); MCHC 33.1 g/dL (32.2-35.5); MCV 98.9 fL (79.4-94.8); RBC 2.69 M/uL (3.93-5.22)
[2025-08-21 06:08] LABS: BANDS, MANUAL DIFF 10; LYMPHOCYTES, MANUAL DIFF 14; MONOCYTES, MANUAL DIFF 13; NEUTROPHILS, MANUAL DIFF 63
[2025-08-21 06:11] LABS: ALT (SGPT) 17.0 U/L (14-59); AST (SGOT) 16.0 U/L (15-37); GLOMERULAR FILTRATION RATE,EST 81.0 mL/min (>60); PHOSPHORUS, INORGANIC 2.3 mg/dL (2.5-4.9); PROTEIN, TOTAL 4.7 g/dL (6.4-8.2); UREA NITROGEN 25.0 mg/dL (7-18)
--- NOTE | 2025-08-21 06:27 | NUR ---
PATIENT REPORTS NO NAUSEA THIS AM, SHE REPORTS MILD MADALYN IN ABD, SHE DENIES NEED FOR PAIN MEDICATIONS AT THIS TIME. V/S COMPLETE.
[2025-08-21] MEDS ORDERED: POTASSIUM CHLORIDE 10 MEQ TABCR PO ONE (08:15)
--- NOTE | 2025-08-21 08:50 | NUR ---
DISCUSSED PT WITH DR OCHOA, ORDERED HOME SEIZURE MED FROM PHARMACY. EDUCATED PT ON MG AND KCL REPLACEMENT. DR IN ROOM WITH PT AND HER FRIEND. ADVANCE DIET TOLERATED. CALL LIGHT IN REACH.
[2025-08-21] MEDS ORDERED: carBAMazepine 200 MG TAB PO SCH (09:00)
[2025-08-21] MEDS ORDERED: VALPROIC ACID 250 MG CAP PO SCH (09:00)
[2025-08-21] MEDS ORDERED: SOD PHOS MONO/SOD PHOS DIBAS 1 EACH PACKET PO ONE (10:00)
--- NOTE | 2025-08-21 10:19 | NUR ---
UR CLINICAL REVIEW: 2 MN FOR VERSALUS-PER [employer] PLANT MANAGER MEETS INPT FOR SEPSIS/COLITIS WITH NEED FOR IV HYDRATION, SERIAL LABS AND MONITORING MEDICARE OBS TO INPT 08/21/25 @ 0944 ORDER MATCHES REG NO AUTH REQUIRED PER MEDICARE GUIDELINES DISCHARGE TO HOME WHEN STABLE 08/22/25 DC REVIEW
--- NOTE | 2025-08-21 10:30 | NUR ---
Spoke with Lilliam and she cont. to live in her home. She has a friend who checks on her 2 x per day. Friend checked on her over the weekend and found her in a terrible state. Lilliam states she really can't remember much. She denies financial and safety issues. Wants to go home on dc. Had a recent total hip in Jul. Home when she is medically cleared. Pt drives.
--- NOTE | 2025-08-21 11:32 | NUR ---
resting in bed visiting with family and friend. taking po cl liq well - nausea with po pills that are large in size. call light in reach.
[2025-08-21] MEDS ORDERED: PHARMACY RENAL DOSE ADJUSTMENT 1 DOSE MISC PO SCH (12:00)
--- NOTE | 2025-08-21 13:24 | NUR ---
pt amb to chair to go to room 126 for shower with chg soap. staff assisted pt with new gown, and this rn changed bed linen. pt up to ch with call light.
--- NOTE | 2025-08-21 14:10 | NUR ---
PT WALKED FROM THE BED TO THE CHAIR, THEN I PUSHED HER WHILE IN THE CHAIR TO ROOM 126. ROOM 126 WAS WHERE THIS PT'S RN ASKED ME TO SHOWER THIS PT, THERE IS NO SHOWER IN THIS PT'S ROOM, ROOM 129. THE PT MOVED FROM THE CHAIR TO THE SHOWER SEAT WITH SBA. THE PT SHOWERED INDEPENDENTLY, WITH SBA FROM THIS SUPERVISOR SHEARING. WHEN THE PT WAS FINISHED I HELPED THE PT DRY OFF AND GET A CLEAN GOWN AND GRIPPY SOCKS ON. THE PT THEN PERFORMED ORAL CARE, AND WHEN WE RETURNED TO HER ROOM, I PUT LOTION ON THE PT'S LEGS AND BACK, REQUESTED. PT'S LINENS WERE CHANGED BY HER RN, AND I RETURNED HER BACK TO HER BED.
--- NOTE | 2025-08-21 15:01 | NUR ---
medications reconciled
--- NOTE | 2025-08-21 17:20 | NUR ---
PT TOOK BITE OF REQUESTED EGG SALAD SAND AND HAD NAUSEA VOMITING (100) ML CLEAR EMISIS. PT RESTING AND REVERTED BACK TO CLEAR LIQ. DIET. ZOFRAN HAS RECENTLY BEEN GIVEN. PT RESTING NOW - CALL LIGHT IN REACH
--- NOTE | 2025-08-21 18:52 | NUR ---
pt resting in bed, call light in reach resp rate even.
--- NOTE | 2025-08-21 20:12 | NUR ---
ROUNDING, ON ASSESSMENT PATIENT REPORTS SHE IS HAVING ABD PAIN IMPROVED FROM LAST NIGHT BUT STILL SIGNIFICANT AND SHE WOULD LIKE PAIN MEDICATION FOR THIS. PATIENT ASSESSMENT COMPLETE, NO NEW CONCERNS. PATIENT RPEORTS HSE IS WILLING TO WEAR SCDS TONIGHT.
[2025-08-21] MEDS ORDERED: DICYCLOMINE HCL 10 MG CAP PO PRN (22:15)
--- NOTE | 2025-08-22 04:50 | NUR ---
PATIENT RESTING QUIELTY IN BED EYES CLOSED, RESPIRATIONS REGULAR AT 16/MIN. NO DISTRESS NOTED WHILE ROUNDING.
[2025-08-22 05:16] VITALS: BP 124/64
--- NOTE | 2025-08-22 05:27 | NUR ---
PATIENT CALLED NURSES STATION REPORTS NEED TO USE THE BATHROOM. PATIENT UP ONE PERSON STANDBY WITH FWW, SHE VOIDED 200ML LIGHT TEA COLORED URINE AND HAD MEDIUM LIQUID BM, STOOL SAMPLE SENT TO LAB PER ORDER. PATIENT REPORTS ABDOMEN CRAMPS, 20MG BENTYL PRN ADMINISTERED, SHE REPORTED THE DOSE OF BENTYL AMINISTERED LAST NIGHT WAS EFFECTIVE. AM ASSESSMENT COMPLETE, NO NEW CONCERNS.
[2025-08-22 05:56] LABS: MCH 32.8 PG (25.6-32.2); MCHC 32.8 g/dL (32.2-35.5); MCV 100.0 fL (79.4-94.8); RBC 2.50 M/uL (3.93-5.22)
[2025-08-22 06:15] LABS: BANDS, MANUAL DIFF 19; EOSINOPHILS, MANUAL DIFF 3; LYMPHOCYTES, MANUAL DIFF 14; MONOCYTES, MANUAL DIFF 6; NEUTROPHILS, MANUAL DIFF 58
[2025-08-22 06:22] LABS: ALT (SGPT) 16.0 U/L (14-59); AST (SGOT) 21.0 U/L (15-37); GLOMERULAR FILTRATION RATE,EST 96.0 mL/min (>60); PHOSPHORUS, INORGANIC 1.9 mg/dL (2.5-4.9); PROTEIN, TOTAL 4.8 g/dL (6.4-8.2); UREA NITROGEN 14.0 mg/dL (7-18)
--- NOTE | 2025-08-22 08:17 | NUR ---
4- c diff results reviewed with medical lab tech instructor Selina - pt is carrier of cdiff and not currently positive - reviewed with staff and tan room supervisor. pt resting with call light in reach.
--- NOTE | 2025-08-22 08:51 | NUR ---
pt amb to br to void, then to chair with fww. sitting with call light attempting po meds with breakfast and visiting with friend. dr mzea in room at this time. pt reports po difficult to swallow since last month. plan for dc home.
[2025-08-22] MEDS ORDERED: SODIUM PHOSPHATE 30 MMOL in DEXTROSE 5% 250 ML IV ONE (09:00)
[2025-08-22 09:10] VITALS: BP 124/62
[2025-08-22] MEDS ORDERED: DICYCLOMINE HCL10 MG PO (09:38)
[2025-08-22] MEDS ORDERED: CIPROFLOXACIN250 MG PO (09:39)
--- NOTE | 2025-08-22 10:10 | NUR ---
pt back to bed with call light in reach.
--- NOTE | 2025-08-22 11:30 | NUR ---
Spoke with Lilliam. She plans on dc around 2 pm when her IVs have infused. She denies needs. She will call a friend for transport to return to her home.
[2025-08-22 12:32] VITALS: BP 126/60
--- NOTE | 2025-08-22 12:34 | NUR ---
amb to br to void, back to bed - call light in reach. lunch to bedside, pudding and cottege cheese. iv fusing wnl.
--- NOTE | 2025-08-22 13:43 | NUR ---
MEDICATION GIVEN. PATIENT HAS FAMILY AT BEDSIDE. DENIES ANY OTHER CARES AT THIS TIME.
[2025-08-22 13:57] VITALS: BP 114/65
== END 2025-08-22 14:20 | disposition home or self-care (01) | DRG 872 ==
LOC: ED 10:38 → CCU 10:40
PROVIDERS: Emergency Medicine; Student in an Organized Health Care Education/Training Program; ADMIT Family Medicine; ATTEND Family Medicine
DX: A41.9 Sepsis, unspecified organism (principal); N39.0 Urinary tract infection, site not specified; M96.842 Postprocedural seroma of a musculoskeletal structure following a musculoskeletal system procedure; K52.9 Noninfective gastroenteritis and colitis, unspecified; M16.12 Unilateral primary osteoarthritis, left hip; Z96.642 Presence of left artificial hip joint; I10 Essential (primary) hypertension; E78.5 Hyperlipidemia, unspecified; E87.6 Hypokalemia; D64.9 Anemia, unspecified; E83.39 Other disorders of phosphorus metabolism; G40.909 Epilepsy, unspecified, not intractable, without status epilepticus; Z87.891 Personal history of nicotine dependence; Z88.1 Allergy status to other antibiotic agents; Z88.5 Allergy status to narcotic agent; Z79.82 Long term (current) use of aspirin; Z79.891 Long term (current) use of opiate analgesic; Z79.899 Other long term (current) drug therapy
CPT/HCPCS: 36415; 71045; 74177; 80053; 81001; 83605; 83735; 84100; 85025; 85610; 85730; 87324; 87502; A9270; J0696; J0744; J2405; J3475; J3480; J3490; J7030; J7060; Q9967; U0002